=== PATIENT | male | born 1965 | race Caucasian/White ===

== ENCOUNTER 2023-10-10 08:00 | Observation (INO) ==
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
[~2023-10-10 08:00] MED LIST: DEXAMETHASONE SOD INJ 4 MG/ML VIAL ONE; DexMEDEtomidine HCL IV 100 MCG/ML VIAL IV ONE; GLYCOPYRROLATE 0.2 MG/ML VIAL ONE; LIDOCAINE 2% 2 ML VIAL/AMP(20MG/ML) INFIL ONE; MIDAZOLAM HCL 1 MG/ML 2ML VIAL ONE; ONDANSETRON INJ 2 MG/ML 2 ML VIAL ONE; PROPOFOL IV EMULSION 10 MG/ML 20 ML VIAL IV ONE; ROCURONIUM BROMIDE 10 MG/ML 5 ML VIAL IV ONE; SUGAMMADEX SODIUM 200 MG/2 ML VIAL IV ONE; fentaNYL citrate PF 100 MCG/2 ML VIAL ONE
[2023-10-10] MEDS: GABAPENTIN 600 MG DOSE PO SCH (08:41)
[2023-10-10] MEDS: LR 60ML/HR IV SCH (08:41)
[2023-10-10] MEDS: LR 15ML/HR IV SCH (08:41)
[2023-10-10] MEDS: ACETAMINOPHEN 500 MG TAB PO SCH (08:41)
[2023-10-10] MEDS: CeleBREX 200 MG CAP PO SCH (08:42)
--- NOTE | 2023-10-10 09:06 | History & Physical Bridge Note ---
Date of Service October 10, 2023 History & Physical Bridge Note I have examined the patient, reviewed the History & Physical and in the interval since the performance of the History & Physical I have noted the following changes of clinical significance: no changes noted
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
[2023-10-10] MEDS ORDERED: ePHEDrine sulfate 50 MG/ML AMP IV PRN (09:28)
[2023-10-10] MEDS ORDERED: ATROPINE SULFATE 0.1 MG/ML 10ML SYR IV PRN (09:28)
[2023-10-10] MEDS ORDERED: ONDANSETRON INJ 2 MG/ML 2 ML VIAL IV PRN ×2 (09:28→13:55)
[2023-10-10] MEDS: ceFAZolin 2000MG 2,000 MG/15 ML SYR IV SCH ×2 (09:34→16:58)
[2023-10-10] MEDS ORDERED: ePHEDrine sulfate 50 MG/5 ML SYR ONE (10:09)
[2023-10-10] MEDS: ceFAZolin 330 MG/ML 1 GM VIAL ONE (10:13)
[2023-10-10] MEDS: FLOSEAL HEMOSTATIC MATRIX 10ML TOP ONE (10:13)
--- NOTE | 2023-10-10 11:25 | Operative Report ---
Post Operative Report Pre & Post Diagnosis Operation Date: 10/10/23 09:45 Pre-Op Diagnosis: (1) Myelopathy concurrent with and due to spinal stenosis of cervical region Post-Op Diagnosis: (1) Myelopathy concurrent with and due to spinal stenosis of cervical region I identified the patient and participated in the time-out.: Yes Procedure Operation Date: 10/10/23 09:45 Actual Procedures #1 anterior cervical corpectomy with bilateral foraminotomies C4. #2 anterior arthrodesis 3C to C5. #3 placement of Spira 27 mm cage C3-C5. #4 placement locally harvested morselized autograft combined with callus bone graft interbody cage. #5 application of K2 M plate screws from C3-C5. Surgeon Zay Ireland, [employer] Manager Luanne Arce Estimated Blood Loss 50 Findings Consistent with Post-Op Diagnosis Specimens None Indications This is a 58-year-old male who presents with the above-mentioned diagnosis. After failing course of nonoperative care is here for surgical invention. We did have a lengthy discussion preoperatively regarding fusion from C3-C7. We agreed that if we could address the majority of the disease addressing the C4 level only we would avoid the lower level fusions concerning he is willing 4 years of age without radiculopathy. Description of Procedure Patient was met with identified informed consent obtained. Patient was then taken to the operative suite underwent ablation placed in a supine position on the Brady table with the head Chahal block. All bony promises well-padded eyes inspected to ensure no external precipice monitor at this point the anterior cervical spine was prepped and draped in a sterile fashion. A transverse incision was then placed along the right anterior aspect the cervical spine. Blunt dissection with the assistance of bipolar Cardizem form down to expose the anterior cervical spine from C3-C5. Self-retaining retractors placed. A complete discectomy of C3-C4 was then performed up to the ankle body joints bilaterally. I had to remove significant portion of the C4 vertebral body to adequately remove all posterior fragments of disc out of the canal. Subsequently I moved towards a complete corpectomy of C4. I then remove the disc from C4-C5 I did exit the joints bilaterally. Marshallberg distracting pins were then placed in C3 and C5 distract across the remainder of the C4 vertebral body. A complete corpectomy C4 was then performed including bilateral foraminotomies. This provided adequate decompression of the canal. Endplates were then burred to subcortical bleeding bone and a 27 mm spiral cage filled with local autograft and catalyst bone graft was tapped into position. Distracting apparatus was removed. A K2 M plate and screws were then applied with the assistance of fluoroscopy. The incision was then copiously irrigated explored to ensure no damage to surrounding structures remaining bleeding. 10 round CHANELL drain inserted. The incision was then closed with 2-0 Vicryl in the fascia and 4 Monocryl for final closure. Steri-Strips dressings placed. Patient waken taken to PACU stable condition. Please note spinal cord monitoring was utilized at the procedure no changes noted. Lastly Luanne Arce was present at the entire surgeon on patient positioning complex portion of the surgery and final skin closure. I attest to the content of the Intraoperative Record and any orders documented therein. Any exceptions are noted below.
[2023-10-10] MEDS: fentaNYL citrate PF 100 MCG/2 ML VIAL IV PRN (11:40)
--- NOTE | 2023-10-10 11:49 | Anesthesiology Progress Note ---
Date of Service October 10, 2023 Anesthesia Post Procedure Vital Signs Vital Signs: Temp Pulse Resp BP Pulse Ox O2 Del Method 10/10/23 08:26 Room Air, CPAP 10/10/23 08:26 97.9 F 78 20 149/89 H 97 Room Air, CPAP Pain Intensity Neck: Pain Intensity: 0 Transfer of Care Handoff Completed per policy Notes Mental Status: alert / awake / arousable and participated in evaluation Patient Amnestic to Procedure: Yes Nausea / Vomiting: adequately controlled Pain: adequately controlled Airway Patency, RR, SpO2: stable & adequate BP & HR: stable & adequate Hydration State: stable & adequate Anesthetic Complications: no major complications apparent and Pt Satisfied with anesthetic care
[2023-10-10] MEDS ORDERED: HYDROmorphone INJ 2 MG/ML SYR/VIAL IV PRN (12:11)
[2023-10-10] MEDS: HYDROmorphone INJ 1 MG/ML SYRINGE ONE ×2 (12:15→12:55)
[2023-10-10] MEDS ORDERED: RACEPINEPHRINE 2.25% NEBU SOLN 0.5 ML VIAL INH PRN (13:55)
[2023-10-10] MEDS ORDERED: MAGNESIUM HYDROXIDE SUSP 30 ML UDC PO PRN (13:55)
[2023-10-10] MEDS ORDERED: dexAMETHasone 8 MG in SYRINGE 0 ML IV PRN (13:55)
[2023-10-10] MEDS ORDERED: ALUMINUM/MAGNESIUM SUSP 30 ML UDC PO PRN (13:55)
[2023-10-10] MEDS ORDERED: diphenhydrAMINE Capsule 25 MG CAP PO PRN (13:55)
[2023-10-10] MEDS ORDERED: FAMOTIDINE 20 MG TAB PO PRN (13:55)
[2023-10-10] MEDS ORDERED: HYDROmorphone INJ 1 MG/ML SYRINGE IV PRN (13:55)
[2023-10-10] MEDS ORDERED: PROMETHAZINE HCL 12.5 MG in SODIUM CHLORIDE 0.9% 50 ML IV PRN (13:55)
[2023-10-10] MEDS ORDERED: ONDANSETRON 4 MG OD TAB PO PRN (13:55)
[2023-10-10] MEDS ORDERED: LORazepam 0.5 MG TAB PO PRN (13:55)
[2023-10-10] MEDS ORDERED: LORazepam 0.5 MG in SYRINGE 0.25 ML IV PRN (13:55)
[2023-10-10] MEDS ORDERED: bisacodyL 10 MG SUPP PR PRN (13:55)
[2023-10-10] MEDS ORDERED: METOCLOPRAMIDE HCL INJ 5 MG/ML 2 ML VIAL IV PRN (13:55)
[2023-10-10] MEDS ORDERED: ACETAMINOPHEN 1,000 MG/100 ML VIAL IV PRN (13:55)
[2023-10-10] MEDS ORDERED: hydrOXYzine HCl 25 MG TAB PO PRN (13:55)
[2023-10-10] MEDS ORDERED: DO NOT ADMINISTER FLU VACCINE PRN (13:55)
[2023-10-10] MEDS ORDERED: NALOXONE HCL 0.4 MG/1 ML VIAL/CARP IV PRN (13:55)
[2023-10-10] MEDS ORDERED: SOD PHOSPHATE/SOD BIPHOSPHATE ENEMA 132 ML BTL PR PRN (13:55)
[2023-10-10] MEDS ORDERED: HYDROmorphone INJ 0.5 MG/0.5 ML SYR IV PRN (13:55)
[2023-10-10] MEDS ORDERED: GABAPENTIN 100 MG CAP PO PRN (13:55)
[2023-10-10] MEDS ORDERED: DO NOT ADMINISTER PNEUMOCOCCAL VACCINE PRN (13:55)
--- NOTE | 2023-10-10 14:15 | Fluoroscopy Report ---
FL cervical 2-3V CLINICAL HISTORY: C3-C5 ANTERIOR CERVICAL DISCECTOMY AND FUSION COMPARISON STUDY: None FLUOROSCOPY TIME: 9 seconds. Ka, r: 1.21 mGy FLUOROSCOPIC IMAGES: 2 FINDINGS: Fluoroscopy was provided during C4 corpectomy and C3-C5 anterior discectomy and fusion. Cristino dware is intact. Surgical drain is in place. Linear radiodensity on the initial image is not evident on the subsequent image. Endotracheal tube is incidentally noted. IMPRESSION: Fluoroscopy provided during C4 corpectomy and C3-C5 anterior discectomy and fusion. ACT 112: Negative or not required by law. Electronically signed by: Ghanshyam Soriano M.D. 10/10/2023 2:13 PM
[2023-10-10] MEDS: LACTATED RINGER'S 1,000 ML IV SCH (14:37)
[2023-10-10] MEDS: dexAMETHasone 6 MG in SYRINGE 0 ML IV SCH (14:38)
[2023-10-10] MEDS: ACETAMINOPHEN 500 MG TAB PO PRN (17:07)
[2023-10-10] MEDS: DOCUSATE SODIUM/SENNA 50/8.6MG TAB PO SCH (20:27)
[2023-10-10] MEDS: SIMVASTATIN 40 MG TAB PO SCH (21:06)
[2023-10-10] MEDS: traMADol HCL 50 MG TABLET PO PRN (21:06)
--- OUTSIDE RECORDS SUMMARY | 2023-10-11 03:19 | External Medical Summary | Summary of Care ---
Author Name Unknown Organization [facility] Address [address] [place] [address] Phone [phone] Care Team Providers Care Waxer Floor Name Role Phone Bora Henriquez PA-C Primary Care Provider [phone] Reason for Visit * Reason Onset Date Comments Other 10/03/202310/04 Encounter Details Date Type Department Care Team (Late st Contact Info) Description 10/03/2023 Telephone [facility] [address] [place] [phone] Hui Flores MD [address] [place] [address] Other (10/04) Allergies No known active allergiesdocumented as of this encounter (statuses as of 10/05/2023) Medications Medication Sig Dispensed Refills Start Date End Date Status Tamsulosin HCl 0.4 MG Oral Capsule (Flomax) Take 1 Capsule by mouth in the morning. 90 Capsule 3 07/25/2023 Active Finasteride 5 MG Oral Tablet (Proscar) Take 1 Tablet by mouth in the morning. 90 Tablet 3 07/25/2023 Active Simvastatin 40 MG Oral Tablet (Zocor)Indications:H yperlipidemia with target LDL less than 130 TAKE 1 TABLET BY MOUTH AT BEDTIME 90 Tablet 3 08/31/2023 Active Levothyroxine Sodium 200 MCG Oral Tablet (Levoxyl)Indications :Acquired hypothyroidism TAKE 1 TABLET BY MOUTH ONCE DAILY AT LEAST 30 MINUTES PRIOR TO BREAKFAST OR OTHER MEDICATIONS 90 Tablet 3 08/31/2023 Active B-12 500 MCG Oral TabletIndications:Lo w serum vitamin B12 Take 1 Tablet by mouth daily. 90 Tablet 09/03/2023 Active Additional Information Patient not taking.Reported on 10/01/2023 Vitamin D3 1.25 MG (48022 UT) Oral CapsuleIndications:V itamin D insufficiency Take 1 Capsule by mouth once a week. 4 Capsule 1 09/03/2023 Active Gabapentin 100 MG Oral Capsule (Neurontin)Indicatio ns:Left arm pain,Paresthesia of left arm Take 1 capsule by mouth at bedtime 30 Capsule 5 09/18/2023 Active documented as of this encounter (statuses as of 10/05/2023) Active Problems Problem Noted Date Diagnosed Date Mild intermittent asthma without complication Hyperlipidemia with target LDL less than 130 Overview: ICD-10 update of inactive term MANDEEP on CPAP 05/26/2011 Acquired hypothyroidism 03/30/2009 Overview: Levoxyl 75mcg started 03/30/09 - increased to 100mcg -repeat TSH 09/13/09: 4.55 - cont same dose and repeat in 12/07 TSH: 03/29/09 2:24P 03/29/09 11.27* FINAL Thyroid US 06/10/10: enlarged right lobe w/ calcifications - no nodule documented as of this encounter (statuses as of 10/05/2023) Resolved Problems Problem Noted Date Diagnosed Date Resolved Date Asthma, mild persistent 01/18/2022 09/2 04/2021 Unspecified asthma, uncomplicated 03/24/2019 01/18/2022 Dyslipidemia, goal LDL below 160 04/08/2009 05/26/2011 Dyslipidemia, goal LDL below 130 12/31/2002 04/08/2009 Overview: Per Lipid Taxonomy. Lipid Panel Results 11/29/07: TRIGLYCERIDES:200 CHOLESTEROL: 227 HDL: 29 LDL : 158 documented as of this encounter (statuses as of 10/05/2023) Immunizations Name Administration Dates Next Due COVID-19 mRNA, LNP-s, No Pre serve, 2-Dose Series (Pfizer) 09/18/2020,08/26/2020 Pneumococcal Conjugate Vacci ne, 20-valent ([id number]) 01/18/2022 Pneumococcal Polysaccharide PPV23 (Pneumovax) 03/16/2020 Seasonal Influenza, PF, 6 M & above, IM , (FluLaval or Fluzone) 01/05/2023,01/18/2022,02/17/2021,03/16,01/22/2019,04/01/2018 Seasonal Influenza, Quadriva lent, No Preserve, IM 01/11/2017,03/23/2015 Seasonal Influenza, Split, I IV3, With Preserve, Inj 03/30/2014,01/28/2013,01/24/2011 TDAP, Age 7 and older, IM (Adacel) 01/24/2013, Zoster Vaccine Recombinant (Shingrix) 08/11/2021 ,02/28/2021 documented as of this encounter Social History Tobacco Use Types Packs/Day Years Used Date Smoking Tobacco: Never Smokeless Tobacco: Never Alcohol Use Standard Drinks/Week Comments Yes 0 (1 standard drink = 0.6 oz pur e alcohol) 2 drinks per month PHQ-2 Answer Date Recorded PHQ Adult Total Score 0 08/08/2023 Hunger Vital Sign Answer Date Recorded Within the past 12 months, y ou worried that your food would run out before you got the money to buy more. Never true 08/23/19 24 Within the past 12 months, t he food you bought just didn't last and you didn't have money to get more. Never true 08/23/2023 Sex and Gender Information Value Date Recorded Sex Assigned at Male 11/25/2018 9:01 AM EDT Gender Identity Male 11/25/2018 9:01 AM EDT Sexual Orientation Straight 11/25/2018 9: 01 AM EDT Job Start Date Occupation Industry Not on file Not on file Not on file documented as of this encounter Miscellaneous Notes * Telephone Encounter - Hui Flores MD - 10/05/2023 4:19 PM EDT Noted * Telephone Encounter - Bethanie Gonzalez LPN - 10/05/2023 4:11 PM EDT EKG received, placed on Dr. Flores's desk for review. * Telephone Encounter - Bethanie Gonzalez LPN - 10/05/2023 4:08 PM EDT Still have not received EKG report, spoke to Hina at [facility] and she will fax EKG to [phone] * Telephone Encounter - Danika Hinson OSA - 10/04/2023 3:10 PM EDT Spoke with [facility], they are faxing the EKG report. * Telephone Encounter - Hui Flores MD - 10/03/2023 11:12 AM EDT Please get EKG report (done last week at [facility] for preop clearance) and scan it in the chart. documented in this encounter Plan of Treatment Upcoming Encounters Date Type Department Care Team (Late st Contact Info) Description 12/20/2023 8:00 AM EDT Office Visit [facility] Sald[facility] [address] [place] [phone] Boar Henriquez PA-C [address] [place] [address] [phone] 06/18/2024 3:20 PM EST Office Visit Sleep Disorders, [facility] [address] [place] [address] Shonna Worthington MD [address] [place] [address] 07/28/2024 8:15 AM EDT Office Visit Urology Rosamaria Recinos [address] [place] [address] David Díaz Jr., MD [address] [place] [address] Scheduled Procedures Name Priority Associated Diagnoses Date/Ti me COLONOSCOPY FLEXIBLE PROXIMAL DIAGNOSTIC Recall History of colon polyps Health Maintenance Due Date Last Done Comments HIV Screening 1978 Hepatitis C Screening 1981 Cologuard 2008 Fecal Occult Blood Test 2008 Sigmoidoscopy 2008 *SPIROMETRY ONCE FOR ASTHMA-ADULT 03/23/2022 COVID-19 Vaccine ( - 2022- season) 2022 09/18/2020, 08/26/2020 DTaP,Tdap,and Td Vaccines (3 - Td or Tdap) 01/24/2023 01/24/2013, 11/15/2007 Colonoscopy 12/17/2023 12/16/2018, 11/28, 10/09/2013, Additional history exists Colorectal Cancer Screening 12/17/2023 Depression Screening 08/07/2024 08/08/2023 TSH 08/22/2024 08/23/2023, 06/29, 01/03/2022, Additional history exists Diabetes Screening 08/22/2026 08/23/2023, 0 07/17/2022, 01/03/2022, Additional history exists Lipid Panel 07/18/2027 07/17/2022, 0909/2021, 11/24/2020, Additional history exists RETIRED - COLONOSCOPY-EVERY 5 YRS AGES 18-100 Discontinued 12/16/2018, 12/16/2018, 10/09/2013, Additional history exists Zoster Vaccines Completed 08/11/2021, 02/28/2021 Pneumococcal Vaccine: Pediatrics (0 to 5 Years) and At-Risk Patients (6 to 64 Years) Completed 01/18/2022, 03/16/2020 Influenza Vaccine (FLU shot) Completed 01/05/2023, 01/18/2022, 02/17/2021, Additional history exists GARDASIL-HPV IMMUNIZATION SERIES Aged Out No longer eligible based on patient's age to complete this topic Hepatitis B Aged Out No longer eligi ble based on patient's age to complete this topic MENINGOCOCCAL (MENACTRA/MENVEO) Aged Out No longer eligible based on patient's age to complete this topic documented as of this encounter Medical Devices Implanted Type Area Software Clerk Device Identifier Shelf Expiration Date Model / Serial / Lot Plt 1.7 S Prof T-Plt,[place],6h - [id number] Implanted:Qty: 1 on 08/26/2021 by Chase Rangel MD at OR [facility] Left: Finger SAMIRA : [id number] / / Screw Lk V2 T5 1.7mm L9mm - [id number] Implanted:Qty: 4 on 08/26/2021 by Chase Rangel MD at OR [facility] Left: Finger SAMIRA : TRAUMA [id number] / / Screw Lk V2 T5 1.7mm L10mm - [id number] Implanted:Qty: 1 on 08/26/2021 by Chase Rangel MD at OR [facility] Left: Finger SAMIRA : TRAUMA [id number] / / Screw Lk V2 T5 1.7mm L11mm - [id number] Implanted:Qty: 1 on 08/26/2021 by Chase Rangel MD at OR [facility] Left: Finger SAMIRA : TRAUMA [id number] / / documented as of this encounter Care Teams Waxer Floor Relationship Specialty Start Date End Date Bora Henriquez PA-C [address] [place] [id number] PCP - General Physician Satellite Television Installer 01/03/22 documented as of this encounter
--- OUTSIDE RECORDS SUMMARY | 2023-10-11 03:19 | External Medical Summary | Summary of Care ---
Author Name Unknown Organization [facility] Address [address] [address] [place] [address] Phone [phone] Care Team Providers Care Industrial Maintenance Technician Name Role Phone Bora Henriquez PA-C Primary Care Provider [phone] Reason for Visit * Reason Comments pre-op exam Neck surgery on 10/[address] Ireland Encounter Details Date Type Department Care Team (Late st Contact Info) Description 10/01/2023 3:20 PM EDT Office Visit [facility] [address] [place] [id number] Hui Flores MD 21 [facility] [place] [id number] Preoperative clearance*; Cervical radiculopathy; Acquired hypothyroidism; Hyperlipidemia with target LDL less than 130; Mild intermittent asthma without complication; MANDEEP on CPAP; Cervical spondylosis Allergies No known active allergiesdocumented as of [...] 07/25/2023 Active Simvastatin 40 MG Oral Tablet (Zocor)Indications: Hyperlipidemia with target LDL less than 130 TAKE 1 TABLET BY MOUTH AT BEDTIME 90 Tablet 3 08/31/2023 Active Levothyroxine Sodium 200 MCG Oral Tablet (Levoxyl)Indication s:Acquired hypothyroidism TAKE 1 TABLET BY MOUTH ONCE DAILY AT LEAST 30 MINUTES PRIOR TO BREAKFAST OR OTHER MEDICATIONS 90 Tablet 3 08/31/2023 Active B-12 500 MCG Oral TabletIndications:L ow serum vitamin B12 Take 1 Tablet by mouth daily. 90 Tablet 09/03/2023 Active Additional Information Patient not taking.Reported on 10/01/2023 Vitamin D3 1.25 MG (67790 UT) Oral CapsuleIndications: Vitamin D insufficiency Take 1 Capsule by mouth once a week. 4 Capsule 1 09/03/2023 4 Active Gabapentin 100 MG Oral Capsule (Neurontin)Indicati ons:Left arm pain,Paresthesia of left arm Take 1 capsule by mouth at bedtime 30 Capsule 5 09/18/2023 Active Ibuprofen 800 MG Oral Tablet (Motrin) Take by mouth 1 Tablet every 8 hours as needed for Pain, Mild or Pain, Moderate. 90 Tablet 08/23/2021 4 Discontinu ed(Medicat ion/Dose Changed) methylPREDNISolone 4 MG Oral Tablet Therapy Pack (Medrol Dosepack)Indication s:Left arm pain,Left arm weakness,Paresthesi a of left arm follow package directions 21 Tablet 08/23/2023 4 Discontinu ed(Medicat ion/Dose Changed) documented as of this encounter (statuses as [...] (Pfizer) 09/18/2020,08/26/2020 Pneumococcal Conjugate Vacci ne, 20-valent ([id number]) 01/18/2022 Pneumococcal Polysaccharide PPV23 (Pneumovax) 03/16/2020 Seasonal [...] Date Smoking Tobacco: Never Smokeless Tobacco: Never Tobacco Cessation:Counseling Given: Not Answered Alcohol Use Standard Drinks/Week Comments Yes 0 [...] on file documented as of this encounter Last Filed Vital Signs Vital Sign Reading Time Taken Comments Blood Pressure 120/80 10/01/2023 3:27 PM EDT Pulse 86 10/01/2023 3:27 PM EDT Temperature 36.6 C (97.9 F) 10/01/2023 3:27 PM ED T Respiratory Rate 14 10/01/2023 3:27 PM EDT Oxygen Saturation 94% 10/01/2023 3: 27 PM EDT Inhaled Oxygen Concentration - - Weight 117.8 kg (259 lb 11.2 oz) 10/01/2023 3:27 PM EDT Height - - Body Mass Index 32.46 06/18/2023 2:32 PM EST documented in this encounter Progress Notes * Hui Flores MD - 10/01/2023 3:33 PM EDT Images from the original note were not included. Pre-Operative Medical Evaluation Procedure Information Type of Surgery: anterior cervical discectomy and fusion C3 to C7 Referring Physician / Surgeon: ortho/spine Date of procedure: 10/10/2023 Brief History of Present Illness: Patient feels well Review of Systems Constitutional: Negative for activity change, appetite change, chills, fatigue, fever and unexpected weight change. HENT: Negative for congestion, dental problem, ear pain, hearing loss, rhinorrhea, sore throat and trouble swallowing. Eyes: Negative for visual disturbance. Respiratory: Negative for cough, shortness of breath and wheezing. Cardiovascular: Negative for chest pain, palpitations and leg swelling. Gastrointestinal: Negative for abdominal pain, blood in stool, constipation, diarrhea, nausea and vomiting. Endocrine: Negative for polyuria. Genitourinary: Negative for difficulty urinating, dysuria and hematuria. Musculoskeletal: Negative for arthralgias. Skin: Negative for rash. Allergic/Immunologic: Negative for environmental allergies and food allergies. Neurological: Positive for weakness and numbness. Negative for dizziness and headaches. LUE Hematological: Negative for adenopathy. Psychiatric/Behavioral: Negative for dysphoric mood and sleep disturbance. The patient is not nervous/anxious. Medical History Problem List: Mild intermittent asthma without complication (01/18/2022) Asthma, mild persistent (01/18/2022) Unspecified asthma, uncomplicated (03/24/2019) Hyperlipidemia with target LDL less than 130 (05/26/2011) MANDEEP on CPAP (05/26/2011) Dyslipidemia, goal LDL below 160 (04/08/2009) Acquired hypothyroidism (03/30/2009) Dyslipidemia, goal LDL below 130 (12/31/2002) Current Medications Gabapentin 100 MG Oral Capsule (Neurontin), 100 mg, Oral, HS Vitamin D3 1.25 MG (27499 UT) Oral Capsule, 50,000 Units, Oral, Q Week Levothyroxine Sodium 200 MCG Oral Tablet (Levoxyl), TAKE 1 TABLET BY MOUTH ONCE DAILY AT LEAST 30 MINUTES PRIOR TO BREAKFAST OR OTHER MEDICATIONS Simvastatin 40 MG Oral Tablet (Zocor), 40 mg, Oral, HS Finasteride 5 MG Oral Tablet (Proscar), 5 mg, Oral, Daily(AM) Tamsulosin HCl 0.4 MG Oral Capsule (Flomax), 0.4 mg, Oral, Daily(AM) B-12 500 MCG Oral Tablet, 1 Tablet, Oral, Daily(Non-Specified) (Patient not taking: Reported on 10/01/2023) methylPREDNISolone 4 MG Oral Tablet Therapy Pack (Medrol Dosepack), follow package directions (Patient not taking: Reported on 08/30/2023) Ibuprofen 800 MG Oral Tablet (Motrin), 800 mg, Oral, Q8H PRN (Patient not taking: Reported on 10/01/2023) Allergies: Patient has no known allergies. Past Medical History: has a past medical history of BPH (benign prostatic hyperplasia), HLD (hyperlipidemia), Hypothyroidism, MANDEEP on CPAP, and Personal history of colonic polyps (10/09/2013). Past Surgical History: has a past surgical history that includes repair femur shaft fx w/plate/screw (1980); Colonoscopy, Diagnostic (Rectum) (10/09/2013); Colonoscopy, Diagnostic (Rectum) (N/A, 12/16/2018); and Phalanx Shaft Fx, Open Tx, Hand, w/Inter Fixation (Left, 08/26/2021). Social History: reports that he has never smoked. He has never used smokeless tobacco. He reports current alcohol use. He reports that he does not use drugs. Family History: family history includes Heart Disorder in his father; No Past Hx in his brother, mother, none, and sister. Anesthesia History Type of Anesthesia: General Endotracheal Anesthesia reaction: No History of surgical complications: no Personal history of venous thromboembolic disease: no Physical Exam Vitals: 10/01/23 1527 Temp: 36.6 C (97.9 F) Pulse: 86 Resp: 14 SpO2: 94% BP: 120/80 Physical Exam Constitutional: General: He is not in acute distress. Appearance: Normal appearance. HENT: Head: Normocephalic and atraumatic. Right Ear: Tympanic membrane, ear canal and external ear normal. Left Ear: Tympanic membrane, ear canal and external ear normal. Nose: Nose normal. Mouth/Throat: Mouth: Mucous membranes are moist. Pharynx: Oropharynx is clear. Eyes: Conjunctiva/sclera: Conjunctivae normal. Pupils: Pupils are equal, round, and reactive to light. Cardiovascular: Rate and Rhythm: Normal rate and regular rhythm. Pulses: Normal pulses. Pulmonary: Effort: Pulmonary effort is normal. Breath sounds: Normal breath sounds. Abdominal: General: Bowel sounds are normal. There is no distension. Palpations: Abdomen is soft. Tenderness: There is no abdominal tenderness. Musculoskeletal: Left shoulder: Decreased range of motion. Cervical back: Neck supple. Pain with movement present. No spinous process tenderness. Right lower leg: No edema. Left lower leg: No edema. Skin: General: Skin is warm and dry. Findings: No rash. Neurological: General: No focal deficit present. Mental Status: He is alert and oriented to person, place, and time. Psychiatric: Mood and Affect: Mood normal. Behavior: Behavior normal. Labs reviewed and are significant for: results not available 10/02/23 addendum: stable labs, chest xray normal EKG by my review is significant for: results not available at the time of this visit (done at [facility]) 10/05/23 addendum: EKG no change from 05/12/2023 sinus rhythm with 1st degree AV block , non specific intraventricular conduction delay Surgical Risk Scoring Revised Cardiac Risk Index (RCRI) High-risk type of surgery (examples include vascular and any open intraperitoneal or intrathoracic procedures): 0=No History of ischemic heart disease (history of myocardial infarction or positive exercise test, current compliant of chest pain considered to be secondary to myocardia ischemia, use of nitrate therapy, or ECG with pathological Q waves; do not count prior coronary revascularization procedure unless one of the other criteria for ischemic heart disease is present): 0=No History of heart failure: 0=No History of cerebrovascular disease: 0=No Diabetes mellitus requiring treatment with insulin: 0=No Preoperative serum creatinine >2.0 mg/dL (177 micromol/L): 0=No Pt has revised cardiac index score of: No Risk Factors- 0.4% (95% CI: 0.1-0.8) MANDEEP. On CPAP Assessment and Plan 1. Preoperative clearance - patient is cleared for surgery 2. Cervical radiculopathy - for surgery 3. Acquired hypothyroidism - stable 4. Hyperlipidemia with target LDL less than 130 - on statin 5. Mild intermittent asthma without complication - stable 6. MANDEEP on CPAP 7. Cervical spondylosis Functional Assessment They are able to walk up a flight of stairs, walk two blocks at a moderate pace, do heavy house work like vacuuming, and grocery shop. The patient's functional status is good (greater than 4 METS). 1 MET: 4 METs: 4-10 METs: Can take care of self, such as eat, dress or use the toilet. Can walk to block or go up a flight of steps. Can do heavy house work. Surgical Risk Assessment Patient is low medical risk for the listed procedure. Medication adjustments: no Additional consults or testing: no documented in this encounter Nursing Notes * Bethanie Gonzalez LPN - 10/01/2023 3:24 PM EDT Chief Complaint Patient presents with pre-op exam Neck surgery on 10/[address] Ireland documented in this encounter Plan of Treatment Upcoming Encounters Date Type Department Care Team (Late st Contact Info) Description 12/20/2023 8:00 AM EDT Office Visit [facility] [address] [phone] Bora Henriquez PA-C [address] [place] [address] 06/18/2024 3:20 PM EST [facility] [address] [place] [address] Shonna Worthington MD [address] [facility] [place] [address] 07/28/2024 8:15 AM EDT Office Visit Urology [facility] [place] [address] [place] [address] David Díaz Jr., MD [address] [place] [address] Scheduled Procedures Name Priority Associated Diagnoses Date/Ti me COLONOSCOPY FLEXIBLE PROXIMAL DIAGNOSTIC Recall History of colon polyps Health Maintenance Due Date Last Done Comments HIV Screening 1978 Hepatitis C Screening 1981 Cologuard 2008 Fecal Occult Blood Test 2008 Sigmoidoscopy 2008 *SPIROMETRY ONCE FOR ASTHMA-ADULT 03/23/2022 COVID-19 Vaccine ( - season) 2022 09/18/2020, 08/26/2020 DTaP,Tdap,and Td Vaccines (3 - Td or Tdap) 01/24/2023 01/24/2013, 11/15/2007 Colonoscopy 12/17/2023 12/16/2018, 11/28, 10/09/2013, Additional history exists Colorectal Cancer Screening 12/17/2023 Depression Screening 08/07/2024 08/08/2023 TSH 08/22/2024 08/23/2023, /, 01/03/2022, Additional history exists Diabetes Screening 08/22/2026 08/23/2023, 0 07/17/2022, 01/03/2022, Additional history exists Lipid Panel 07/18/2027 07/17/2022, 09/2021, 11/24/2020, Additional history exists RETIRED - COLONOSCOPY-EVERY [...] this encounter Medical Devices Implanted Type Area Nutrition Associate Device Identifier Shelf Expiration Date Model / Serial / Lot Plt 1.7 S Prof T-Plt,[place]entura,6h - [id number] Implanted:Qty: 1 on 08/26/2021 by Chase Rangel MD at [facility] Left: Finger SAMIRA : TRAUMA [id number] / / Screw Lk V2 T5 1.7mm L9mm - [id number] Implanted:Qty: 4 on 08/26/2021 by Chase Rangel MD at [facility] Left: Finger SAMIRA : TRAUMA [id number] / / Screw Lk V2 T5 1.7mm L10mm - [id number] Implanted:Qty: 1 on 08/26/2021 by Chase Rangel MD at [facility] Left: Finger SAMIRA : TRAUMA [id number] / / Screw Lk V2 T5 1.7mm L11mm - [id number] Implanted:Qty: 1 on 08/26/2021 by Chase Rangel MD at [facility] Left: Finger SAMIRA : TRAUMA [id number] / / documented as of this encounter Visit Diagnoses Diagnosis Preoperative clearance- Primary Preoperative examination, unspecified Cervical radiculopathy Brachial neuritis or radiculitis nos Acquired hypothyroidism Unspecified hypothyroidism Hyperlipidemia with target LDL less than 130 Other and unspecified hyperlipidemia Mild intermittent asthma without complication Unspecified asthma MANDEEP on CPAP Obstructive sleep apnea (adult) (pediatric) Cervical spondylosis Cervical spondylosis without myelopathy documented in this encounter Care Teams Industrial Maintenance Technician Relationship Specialty Start Date End Date Bora Henriquez PA-C [address] [place] [address] PCP - General Physician Investigative Reporter 01/03/22 documented as of this encounter
[2023-10-11] MEDS: oxyCODONE HCL IR 5 MG TAB (IMMEDIATE RELEASE) PO PRN (04:49)
[2023-10-11] MEDS: POLYETHYLENE (MIRALAX) 17 GM PACK PO SCH (06:23)
[2023-10-11] MEDS: LEVOTHYROXINE SODIUM 200 MCG TABLET PO SCH (06:56)
--- NOTE | 2023-10-11 08:28 | Discharge Summary ---
Date of Service October 11, 2023 Admission HPI Per Admitting Provider This is a 58-year-old male who presents with chronic persistent neck and arm symptoms after failed course of nonoperative care is here for surgical invention. Principal Diagnosis Cervical spinal stenosis with mild radicular Discharge Data Allergies Allergy/AdvReac Type Severity Reaction Status Date / Time No Known Allergies Allergy Verified 10/10/23 08:23 Procedures Performed Operation Date: 10/10/23 09:45 Actual Procedures p C3-C5 Anterior Cervical Discectomy and Fusion, Spinal Cord Monitoring(Not Applicable) - Zay Ireland DO Ordered Studies 10/10/23 09:45 FL cervical 2-3V Routine Hospital Course (1) Myelopathy concurrent with and due to spinal stenosis of cervical region: Patient underwent anterior cervical corpectomy and fusion tolerated this well was taken to orthopedic for postoperative. Postoperatively he is swallowing well. No hoarseness. Extra strength testing. No numbness in his arms. Subsequently discharged home. Discharge orders instructions from the chart for further review. Total Time Total Time Spent Total Time Spent (In Minutes): 20 minutes Discharge Plan Discharge Items Patient Disposition: Home - Self-Care Reason For Visit: Cervical Spinal Cord Compression, Cervical Spondyl Discharge Diagnosis: Cervical spinal stenosis with myelopathy Activity: As commented below Non-emergency contact: Primary Care Provider Call non-emergency contact if: you have any medication questions Follow-up/Referrals: Bora Henriquez PA-C [Primary Care Provider] - Diet: Regular Addtl Attending Provider Instructions: ACTIVITY RECOMMENDATIONS: SELF CARE INSTRUCTIONS AFTER CERVICAL FUSIONS 1. No smoking. Smoking drastically decreases the chance of a solid fusion. 2. No bending, lifting more than 5 pounds, or twisting (roll like a log when turning in bed). 3. You may shower 3 days after surgery. Thoroughly dry wound. Do not soak in the tub. 4. Cervical collar: Must be worn at all times including sleeping. You may remove the brace only to bath, eat and if you are sitting in a recliner. 5. Please walk as much as you can for exercise. Gradually increase the distance that you walk as your endurance increases. SPECIAL CARE INSTRUCTIONS: VERY IMPORTANT TO READ AND REVIEW A. Do not take any anti-inflammatory medications (i.e. Indocin, Advil, Aspirin, Naprosyn, Aleve, Motrin, etc.) as these may inhibit the chance of a solid fusion. Tylenol is okay to take. B. Your surgical incision has been closed with a cosmetic suture under the skin that will dissolve in about 6 weeks. In 14 days, you can use a pair of clean scissors and cut the suture that is left outside of the skin at the ends of your incision. C. Complications are uncommon, but please contact us if you have any signs or symptoms of: 1. wound infection (fever higher than 102.5 degrees F, redness, separation of wound, drainage, or increasing pain from the incision) 2. blood clots in legs (pain, swelling, redness and warmth in legs) 3. urinary tract infection (fever higher than 102.5 degrees, burning upon urination or increased frequency of urination) 4. nerve problems (inability to walk on your toes or heels, numbness, loss of bowel or bladder control) 5. any other symptoms that concern you. D. Please call the office at if you have any concerns or questions about your operation or recovery. MANAGING PAIN AFTER SPINAL SURGERY 1. Narcotic medication is intended for short-term use and will be provided for surgical pain. Surgical pain usually lasts for a period of 4-6 weeks. Narcotic medication includes Percocet, Vicodin, Darvocet, Tylenol #3 or Lortab. 2. Longer-term pain is more appropriately treated with non-narcotic medication such as Tylenol ES. 3. Muscle spasm is not appropriately treated with narcotics. Muscle relaxers such as Soma, Flexeril or Skelaxin can be used along with Tylenol ES. 4. Remember that we all live with some "aches and pains". This is not unusual or uncommon after an injury or as we get older. 5. We will provide appropriate medication within the normal guidelines of their prescribed use. We will also be very cautious and aware of potential abuse and extended duration of patients' medication needs. 6. Please allow 2-3 days to process refills. Prescriptions will not be mailed but must be picked up at the office. FOLLOW UP VISIT: Keep your scheduled follow-up appointment. Any questions, please call the office at . Pending Studies at Discharge: No Stand-Alone Forms: My [employer], Smoking Cessation Medications and [place] Order Prescriptions: New tramadol 50 mg tablet 50 mg PO Q6H PRN (Reason: pain, moderate) Qty: 20 0RF oxycodone 5 mg tablet 5 mg PO Q6H PRN (Reason: pain) Qty: 20 0RF Continued simvastatin 40 mg tablet 40 mg PO HS tamsulosin 0.4 mg capsule 0.4 mg PO QAM levothyroxine 200 mcg tablet 200 mcg PO QAM finasteride 5 mg tablet 5 mg PO QAM ibuprofen 200 mg Tablet 400 mg PO Q6H PRN (Reason: Pain) gabapentin 100 mg Capsule 100 mg PO HS PRN (Reason: Pain) Vitamin D3 100 mcg (4,000 unit) Capsule 100 mcg PO BID acetaminophen [Tylenol] 325 mg Capsule 650 mg PO QID PRN (Reason: Pain) Discharge Orders: Discharge Order (Routine); Ordered 10/11/23 Ordered By: Zay Ireland Admission Data Admit Date/Time: 10/10/23 11:28 Attending Provider: Zay Ireland Admit Provider: Zay Ireland Primary Care Provider: Bora Henriquez
[2023-10-11 08:47] VITALS: BP 126/73; PULSE 98; RESP 16; TEMP 98.2; O2SAT 93
[2023-10-11] MEDS: FINASTERIDE 5 MG TAB PO SCH (09:02)
[2023-10-11] MEDS: TAMSULOSIN HCL 0.4 MG CAP PO SCH (09:02)
== END 2023-10-11 11:05 | disposition home or self-care (01) ==
LOC: 3E 08:00 → ASU 08:00